=== PATIENT | female | born 1980 | race Caucasian/White ===

== ENCOUNTER 2020-05-19 12:52 | Inpatient (IN) | payer SELFPAY ==
[~2020-05-19] VITALS: Ht 170.2 cm; Wt 64.6 kg
[2020-05-19] MEDS ORDERED: IV NS 0.9% 1,000 ML BAG IV ONE ×2 (13:30→16:00)
--- NOTE | 2020-05-19 13:30 | NUR ---
Patient came in to the er c/o dizziness. On room air, breathing evenly and unlabored. Connected to the monitor and pulse ox. kept comfortable, will continue to monitor accordingly.
[2020-05-19 13:35] LABS: BASOPHILS # (AUTO) 0.1 /CMM (0.0-0.2); BASOPHILS % (AUTO) 0.8 % (0.0-2.0); HEMATOCRIT 41 % (33-45); HEMOGLOBIN 13.7 g/dL (11.5-14.8); LYMPHOCYTES # (AUTO) 2.6 /CMM (0.8-4.8); LYMPHOCYTES % (AUTO) 40.3 % (20.0-44.0); MEAN CORPUSCULAR HGB CONC 34 g/dl (31.0-36.0); MEAN CORPUSCULAR VOLUME 93 fL (82-100); MONOCYTES # (AUTO) 0.4 /CMM (0.1-1.30); MONOCYTES % (AUTO) 6.7 % (2.0-12.0); NEUTROPHILS # (AUTO) 3.1 /CMM (1.8-8.9); NEUTROPHILS % (AUTO) 48.2 % (43.0-81.0); PLATELET COUNT (AUTO) 156 /CMM (150-450); RED BLOOD CELL COUNT(AUTO) 4.37 MIL/uL (4.0-5.2); WHITE BLOOD COUNT (AUTO) 6.5 K/uL (4.3-11.0)
[2020-05-19 13:48] LABS: CALCIUM, SERUM 8.8 mg/dL (8.5-10.1); CREATININE 0.7 mg/dL (0.6-1.3); POTASSIUM 4.2 mmol/L (3.5-5.1)
[2020-05-19 13:55] LABS: BILIRUBIN,DIRECT 0.1 mg/dL (0.0-0.2); BILIRUBIN,TOTAL 0.3 mg/dL (0.2-1.0); TOTAL PROTEIN, SERUM 7.9 g/dL (6.4-8.2)
[2020-05-19] MEDS ORDERED: KETOROLAC TROMETHAMINE INJ 30 MG/ML VIAL IV ONE (14:30)
[2020-05-19] MEDS ORDERED: KETOROLAC TROMETHAMINE 15 MG/ML VIAL ONE (14:55)
[2020-05-19 15:01] LABS: BILIRUBIN,URINE NEGATIVE (NEGATIVE); COLOR,URINE YELLOW (YELLOW); LEUKOCYTE ESTERASE ,URINE SMALL (NEGATIVE); NITRITE, URINE NEGATIVE (NEGATIVE); PH,URINE 7.5 (5.0-8.0); PROTEIN,URINE NEGATIVE (NEGATIVE); UGLUCOSE NEGATIVE (NEGATIVE); UROBILINOGEN,URINE 0.2 EU/dL (0.2)
[2020-05-19 15:36] LABS: RBC,URINE 0-3 /HPF (0-2); SQUAMOUS EPITHELIAL CELL,UR Moderate /HPF (None Seen)
[2020-05-19 15:37] LABS: BACTERIA,URINE Few /HPF (None Seen)
[2020-05-19] MEDS ORDERED: HYDROMORPHONE 1 MG/1 ML DISP.SYRIN ONE (15:55)
[2020-05-19] MEDS ORDERED: CEPHALEXIN MONOHYDRATE 500 MG CAPSULE PO ONE ×2 (15:55→16:00)
[2020-05-19] MEDS ORDERED: ONDANSETRON HCL/PF 4 MG/2 ML VIAL ONE (15:55)
[2020-05-19] MEDS ORDERED: NAPR500T6 PO (15:57)
[2020-05-19] MEDS ORDERED: CEPH500T PO (15:57)
[2020-05-19] MEDS ORDERED: HYDROMORPHONE INJ 2 MG/ML DISP.SYRIN IV ONE (16:00)
[2020-05-19] MEDS ORDERED: ONDANSETRON HCL/PF 4 MG/2 ML VIAL IVP ONE (16:00)
--- NOTE | 2020-05-19 16:05 | NUR ---
MD at bedside and speaking to patient for admission and patient refused. explained the risk and benefits x 3 and still refused for admission.
[2020-05-19] MEDS ORDERED: Magnesium 1GM/D5W 100ML PREMIX 200 ML IV ONE (16:59)
[2020-05-19] MEDS: Magnesium 1GM/D5W 100ML PREMIX 100 ML IV SCH ×2 (17:00→18:00)
--- NOTE | 2020-05-19 17:00 | NUR ---
Patient agreed to stay for admission, MD notified.
--- NOTE | 2020-05-19 17:32 | NUR ---
negative rapid covid test.
[2020-05-19] MEDS ORDERED: MORPHINE SULFATE INJ 2 MG/ML DISP.SYRIN IV PRN (18:30)
[2020-05-19] MEDS ORDERED: MECLIZINE HCL 25 MG TABLET PO PRN (18:30)
[2020-05-19] MEDS ORDERED: MAGNESIUM HYDROXIDE 30 ML UDC PO PRN (18:30)
[2020-05-19] MEDS ORDERED: ONDANSETRON HCL/PF 4 MG/2 ML VIAL IVP PRN (18:30)
[2020-05-19] MEDS ORDERED: Z GUARD REMEDY 2 OZ OINT TP PRN (18:30)
[2020-05-19] MEDS ORDERED: ACETAMINOPHEN 325 MG TABLET PO PRN (18:30)
[2020-05-19] MEDS ORDERED: TEMAZEPAM 15 MG CAPSULE PO PRN (18:30)
[2020-05-19] MEDS ORDERED: MAG HYDROX/AL HYDROX/SIMETH 30 ML UDC PO PRN (18:30)
--- NOTE | 2020-05-19 19:16 | NUR ---
TOOK OVER PT CARE. PT [id number]. GRENADIAN AND [place] SPEAKING. 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 AWARE OF ADMISSION.
--- NOTE | 2020-05-19 19:51 | NUR ---
TELE BED: 043-3
--- NOTE | 2020-05-19 19:58 | NUR ---
REPORT GIVEN TO ALBERT BARNHART FOR [facility]
[2020-05-19 20:30] VITALS: BP_SYST 101; BP_SYST 111; BP_SYST 93; BP_DIAS 36; BP_DIAS 60; BP_DIAS 76
[2020-05-19 20:40] VITALS: BP 101/60
[2020-05-19] MEDS: IV NS 0.9% 1,000 ML IV PRN (21:02)
[2020-05-19] MEDS: PANTOPRAZOLE 40 MG TABLET.DR PO SCH (22:09)
[2020-05-19] MEDS: HYDROCODONE/APAP 5/325MG TABLET PO PRN (22:09)
[2020-05-19 23:06] VITALS: BP 101/60
[2020-05-19 23:28] VITALS: BP 101/60
[2020-05-20] VITALS (10 sets, daily range): BP systolic 93–108; BP diastolic 54–75
--- NOTE | 2020-05-20 04:30 | NUR ---
ENDING NOTES: ALERT AND ORIENTATED X4 MEDICATED WITH NORCO X1 FOR C/O H/A AND IT WAS EFFECTIVE. NO C/O PALPITATION. SHE DID C/O OF :SOME DIZZINESS" WHEN GETTING UP TOTHE BATHROOM WITH NURSE AT HER SIDE FOR SAFETY. SHE IS GOOD ABOUT CALLING THE NURSE FOR ASSIST. ON THE TELE MONITOR SHE IS SHOWING SINUS RHYTHM WITH PVC ON THE MONITOR. BLOOD PRUSSURE RUNNING LOW IN THE 80'S AND 90'S SYSTOLIC. 0400 AM B/P 99/59 HR 71
[2020-05-20 06:42] LABS: BASOPHILS % (AUTO) 0.6 % (0.0-2.0); EOSINOPHILS % (AUTO) 3.9 % (0.0-6.0); HEMATOCRIT 39 % (33-45); HEMOGLOBIN 12.9 g/dL (11.5-14.8); LYMPHOCYTES # (AUTO) 2.3 /CMM (0.8-4.8); LYMPHOCYTES % (AUTO) 40.5 % (20.0-44.0); MEAN CORPUSCULAR HGB CONC 33 g/dl (31.0-36.0); MEAN CORPUSCULAR VOLUME 95 fL (82-100); MONOCYTES # (AUTO) 0.3 /CMM (0.1-1.30); MONOCYTES % (AUTO) 5.5 % (2.0-12.0); NEUTROPHILS # (AUTO) 2.8 /CMM (1.8-8.9); NEUTROPHILS % (AUTO) 49.5 % (43.0-81.0); PLATELET COUNT (AUTO) 144 /CMM (150-450); RED BLOOD CELL COUNT(AUTO) 4.08 MIL/uL (4.0-5.2); WHITE BLOOD COUNT (AUTO) 5.6 K/uL (4.3-11.0)
[2020-05-20 07:11] LABS: CALCIUM, SERUM 8.2 mg/dL (8.5-10.1); CREATININE 0.7 mg/dL (0.6-1.3); MAGNESIUM 2.2 mg/dL (1.8-2.4); PHOSPHORUS 3.5 mg/dL (2.5-4.9)
[2020-05-20 07:18] LABS: POTASSIUM 4.9 mmol/L (3.5-5.1)
[2020-05-20 07:26] LABS: THYROID STIMULATING HORMONE 2.791 uIU/mL (0.358-3.74)
[2020-05-20] MEDS: CEPHALEXIN MONOHYDRATE 500 MG CAPSULE PO SCH ×2 (09:09→17:04)
[2020-05-20] MEDS: PANTOPRAZOLE 40 MG TABLET.DR PO SCH (09:10)
[2020-05-20] MEDS: IV NS 0.9% 1,000 ML IV PRN (10:18)
[2020-05-20] MEDS ORDERED: IOHEXOL-350 100 ML VIAL IV ONE (10:46)
[2020-05-20] MEDS ORDERED: IV NS 0.9% 250 ML IV ONE (10:47)
[2020-05-20] MEDS: HYDROCODONE/APAP 5/325MG TABLET PO PRN ×2 (12:44→17:27)
--- NOTE | 2020-05-20 13:30 | NUR ---
shahla pelaez housing management officer in and talked extensively to pt. regarding status and [place] tests.
--- NOTE | 2020-05-20 18:08 | NUR ---
given norco x2 and morphine x1 for headache.had ct of brain today.sister calling often.
--- NOTE | 2020-05-20 20:41 | NUR ---
RN NOTES ALERT AND ORIENTATED X4. NO C/O PALPITATION. SHE DID C/O OF :SOME DIZZINESS" WHEN GETTING UP TOTHE BATHROOM WITH NURSE AT HER SIDE FOR SAFETY. SHE IS GOOD ABOUT CALLING THE NURSE FOR ASSIST. ON THE TELE MONITOR SHE IS SHOWING SINUS RHYTHM WITH PVC ON THE MONITOR. SAFETY MESURES FOLLOWED. CALL LIGHT WITHIN REACH WILL CONTINUE TO MONITOR.
[2020-05-21] VITALS: BP 97/60
--- NOTE | 2020-05-21 06:32 | NUR ---
RN NOTES ALERT AND ORIENTATED X4. PT REPORTS NO PAIN OR DISCOMFORT AT THIS TIME NONE VISIBLE. PT ON ROOM AIR TOLERATING WELL. ON THE TELE MONITOR SHE IS SHOWING SINUS RHYTHM WITH PVC ON THE MONITOR. SAFETY MEASURES FOLLOWED. CALL LIGHT WITHIN REACH WILL ENDORSE TO DAY SHIFT NURSE.
--- NOTE | 2020-05-21 07:30 | NUR ---
MS/RN Opening note Patient received from security shift supervisor. A/O X4, Welsh speaking only, complaining of headache, will administer tylenol as ordered. IV fluids infusing at 125ml/hr via left AC, no signs of infiltration seen. Time allowed for all concerns and questions to be addressed. Safety measures in place, call light within reach. Bed in low setting, side rails X2 in upright position, brakes locked. Translation provided by transportation security officer.
[2020-05-21 08:00] VITALS: BP 102/58
[2020-05-21] MEDS: CEPHALEXIN MONOHYDRATE 500 MG CAPSULE PO SCH (08:24)
[2020-05-21] MEDS: PANTOPRAZOLE 40 MG TABLET.DR PO SCH (08:24)
--- NOTE | 2020-05-21 09:00 | NUR ---
MS/RN Medications Morning medications administered as ordered, including prn tylenol.
--- NOTE | 2020-05-21 09:43 | NUR ---
MS/RN S/B Dr Fong DNP Seen by DNP - patient to be discharged to home today. Encouraged to register with a primary care doctor as soon as possible to ensure adequate follow up is arranged.
--- NOTE | 2020-05-21 12:39 | NUR ---
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 Educated as to the impotence of registering and following up with primary care doctor. No new prescription required, patient to continue with naproxen and tylenol for headaches. Made aware of possible side effects and not to take other medications containing tylenol. Patient stated understanding. Heplock removed, pressure dressing applied, name band will be removed once family are here to lease picker patient. All personal belongings returned to patient and signed for on belongings list. Awating family.
--- NOTE | 2020-05-21 13:13 | NUR ---
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 Escorted to main lobby by RN, patient's family providing transport. Name band removed prior to discharge.
== END 2020-05-21 13:00 | disposition home or self-care (01) | DRG 74 ==
LOC: ER 12:58 → TELE 19:52 → MED 05-21 11:47
PROVIDERS: ADMIT Nurse Practitioner Acute Care; ATTEND Nurse Practitioner Acute Care
DX: G90.8 Other disorders of autonomic nervous system (principal); N39.0 Urinary tract infection, site not specified; M94.0 Chondrocostal junction syndrome [Tietze]; I49.3 Ventricular premature depolarization; R94.31 Abnormal electrocardiogram [ECG] [EKG]; R51.9 Headache, unspecified
CPT/HCPCS: 36415; 70450-TC; 70496-TC; 71045-TC; 80048-TC; 80061-TC; 80076-TC; 81001; 82962-TC; 83735-TC; 84100-TC; 84443-TC; 84484-TC; 84703-TC; 85025-TC; 87081-TC; 87086-TC; 93307-TC; C9803; G0378; J1170; J1885; J2270; J2405; J3475; J7030; J7050; Q9967

== ENCOUNTER 2021-11-06 14:43 | Emergency (ER) | payer MEDICAID ==
[~2021-11-06] VITALS: Ht 172.7 cm; Wt 68.0 kg
[~2021-11-06 14:43] MED LIST: NAPR500T6 PO
[2021-11-06] MEDS ORDERED: KETOROLAC TROMETHAMINE 15 MG/ML VIAL ONE (15:22)
[2021-11-06] MEDS ORDERED: METOCLOPRAMIDE HCL 10 MG/2 ML VIAL ONE (15:22)
[2021-11-06] MEDS ORDERED: SUMATRIPTAN SUCCINATE 6 MG/0.5 ML VIAL SQ ONE ×2 (15:22→15:30)
[2021-11-06] MEDS ORDERED: METOCLOPRAMIDE HCL 10 MG/2 ML VIAL IV ONE (15:30)
[2021-11-06] MEDS ORDERED: KETOROLAC TROMETHAMINE INJ 30 MG/ML VIAL IV ONE (15:30)
[2021-11-06] MEDS ORDERED: IV NS 0.9% 1,000 ML BAG IV ONE (15:30)
--- NOTE | 2021-11-06 15:35 | NUR ---
DR MADDEN AT BEDSIDE FOR EVAL
--- NOTE | 2021-11-06 15:40 | NUR ---
IV LINE ESTABLISHED ON RAC #20. MEDICATIONS ADMINISTERED INDICATED.
--- NOTE | 2021-11-06 16:30 | NUR ---
PT TAKEN TO RADIOLOGY FOR CT
[2021-11-06] MEDS ORDERED: KETO10TA2 PO (17:25)
[2021-11-06] MEDS ORDERED: SUMA100T PO (17:25)
--- NOTE | 2021-11-06 18:20 | NUR ---
IV removed. Catheter intact and site benign. Pressure and 4x4 applied to site. No bleeding noted.
[2021-11-06 18:24] VITALS: BP 120/62
--- NOTE | 2021-11-06 18:24 | NUR ---
Patient discharged to home in stable condition. Written and verbal after care instructions given. Patient verbalizes understanding of instruction.
== END 2021-11-06 18:25 | disposition home or self-care (01) ==
LOC: ER 14:50
DX: G43.909 Migraine, unspecified, not intractable, without status migrainosus (principal); Z79.899 Other long term (current) drug therapy
CPT/HCPCS: 99284; 96374; 70450; 96361; 96375; 96372; J3030; J2765; J7030; J1885

== ENCOUNTER 2022-06-05 03:01 | Emergency (ER) | payer MEDICAID ==
[~2022-06-05] VITALS: Ht 185.4 cm; Wt 70.3 kg
[~2022-06-05 03:01] MED LIST changes: +KETO10TA2 PO; +SUMA100T PO
[2022-06-05] MEDS ORDERED: INDO50CA92 PO (03:21)
--- NOTE | 2022-06-05 03:23 | NUR ---
BIBFAMILY FROM HOME. CAME WITH CC OF PAIN ON LEFT FOOT WITH SWELLING. 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 VITALS CHECKED. PLACED COMFORTABLY IN BED 19
--- NOTE | 2022-06-05 03:24 | NUR ---
SEEN BY DR GALEANO DURING TRIAGE
[2022-06-05] MEDS ORDERED: KETOROLAC TROMETHAMINE INJ 60 MG/2 ML VIAL IM ONE ×2 (03:26→03:30)
[2022-06-05 03:55] VITALS: BP 113/73
--- NOTE | 2022-06-05 03:55 | NUR ---
Patient discharged to home in stable condition. Written and verbal after care instructions given. Patient verbalizes understanding of instruction.
== END 2022-06-05 03:55 | disposition home or self-care (01) ==
LOC: ER 03:08
DX: M10.9 Gout, unspecified (principal)
CPT/HCPCS: 99283; 96372; J1885